=== PATIENT | male | born 1975 | race Caucasian/White ===

== ENCOUNTER 2023-10-12 18:17 | Outpatient (REF) | payer BC, SELFPAY ==
[2023-11-29 11:42] LABS: Fungal Culture & Smear See Comments
== END 2023-10-12 18:18 | disposition home or self-care (01) ==
LOC: NCHCN 18:17
PROVIDERS: Visit Provider Family Medicine
DX: B35.1 Tinea unguium (principal)
CPT/HCPCS: 87102; 87107; 87206

== ENCOUNTER 2023-11-11 15:36 | Outpatient (REF) | payer BC, SELFPAY ==
[2023-11-11 16:07] LABS: HCT 44.3 % (40.0-50.0); HGB 15.3 g/dL (13.5-17.5); MCH 31.7 pg (27.0-33.0); MCHC 34.5 % (32.0-36.0); MCV 92 fL (80-95); MPV 9.7 fL (8.0-11.0); Platelet Count 313 10^3/uL (130-400); RBC 4.83 10^6/uL (4.36-5.78); RDW-SD 40.5 fL; WBC 6.57 10^3/uL (4.4-10.8)
[2023-11-11 17:49] LABS: ALT 33 U/L (16-63); AST 18 U/L (15-37); Albumin 4.2 g/dL (3.4-5.0); Alkaline Phosphatase 79 U/L (46-116); Anion Gap 9.7 mmol/L (3-11); BUN 23 mg/dL (7-18); Bilirubin, Total 0.5 mg/dL (0.2-1.0); CO2 28.3 mmol/L (21.0-32.0); CREATININE 1.3 mg/dL (0.70-1.30); Calcium 9.6 mg/dL (8.5-10.1); Calculated LDL 166 mg/dL (<100); Chloride 105 mmol/L (98-107); Cholesterol 245 mg/dL (<200); Estimated GFR 67.34 (mL/min/1.73m2); Glucose 109 mg/dL (74-106); HDL Cholesterol 53 mg/dL (40-60); Potassium 5.2 mmol/L (3.5-5.1); Sodium 143 mmol/L (136-145); Total Protein 7.5 g/dL (6.4-8.2); Triglyceride 130 mg/dL (<150)
[2023-11-11 23:31] LABS: PSA, Screening 0.7 ng/mL (<=2.5)
== END 2023-11-11 15:37 | disposition home or self-care (01) ==
LOC: NCHCN 15:36
PROVIDERS: Visit Provider Family Medicine
DX: Z00.00 Encounter for general adult medical examination without abnormal findings (principal); Z13.220 Encounter for screening for lipoid disorders; Z13.0 Encounter for screening for diseases of the blood and blood-forming organs and certain disorders involving the immune mechanism; Z13.228 Encounter for screening for other metabolic disorders; Z12.5 Encounter for screening for malignant neoplasm of prostate
CPT/HCPCS: 80053; 80061; 84153; 85027

== ENCOUNTER 2024-03-01 15:27 | Outpatient (REF) | payer BC, SELFPAY ==
[2024-03-01 14:26] LABS: BUN 24 mg/dL (7-18); CREATININE 1.1 mg/dL (0.70-1.30); Calcium 9.6 mg/dL (8.5-10.1); Calculated LDL 139 mg/dL (<100); Chloride 104 mmol/L (98-107); Cholesterol 232 mg/dL (<200); Estimated GFR 82.29 (mL/min/1.73m2); Glucose 105 mg/dL (74-106); HDL Cholesterol 47 mg/dL (40-60); Potassium 4.9 mmol/L (3.5-5.1); Sodium 141 mmol/L (136-145); Triglyceride 231 mg/dL (<150)
== END 2024-03-01 15:28 | disposition home or self-care (01) ==
LOC: NCHCN 15:27
PROVIDERS: PCP Family Medicine; Visit Provider Family Medicine
DX: R73.03 Prediabetes (principal); E78.5 Hyperlipidemia, unspecified
CPT/HCPCS: 80048; 80061

== ENCOUNTER 2024-11-14 16:01 | Outpatient (REF) | payer BC, SELFPAY ==
[2024-11-14 21:35] LABS: ALT 34 U/L (16-63); AST 22 U/L (15-37); Hemoglobin A1C 5.4 % (<5.7)
[2024-11-15 18:27] LABS: PSA, Screening 0.4 ng/mL (<=3.5)
== END 2024-11-14 16:02 | disposition home or self-care (01) ==
LOC: NCHCN 16:01
PROVIDERS: PCP Family Medicine; Visit Provider Family Medicine
DX: R73.09 Other abnormal glucose (principal); Z80.42 Family history of malignant neoplasm of prostate; Z51.81 Encounter for therapeutic drug level monitoring
CPT/HCPCS: 84153; 83036; 84450; 84460